=== PATIENT | male | born 1980 | race Caucasian/White ===

== ENCOUNTER 2024-11-06 10:43 | Emergency (ER) | payer OTHER ==
[~2024-11-06] VITALS: Ht 175.3 cm; Wt 65.0 kg
[2024-11-06 10:51] VITALS: BP 117/73; PULSE 97; RESP 18; TEMP 98; O2SAT 98
== END 2024-11-06 11:27 ==
LOC: ER 10:43
DX: S00.81XA Abrasion of other part of head, initial encounter (principal); Z65.3 Problems related to other legal circumstances; X58.XXXA Exposure to other specified factors, initial encounter; Y93.89 Activity, other specified; Y92.89 Other specified places as the place of occurrence of the external cause; Y99.8 Other external cause status
CPT/HCPCS: 99283